=== PATIENT | male | born 1975 | race Caucasian/White ===

== ENCOUNTER 2019-06-27 07:32 | Emergency (ER) | payer OTHER, SELFPAY ==
[2019-06-27 07:43] VITALS: BP 113/98; PULSE 83; RESP 15; TEMP 36.5; O2SAT 98
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
== END 2019-06-27 08:06 | disposition home or self-care (01) ==
PROVIDERS: Emergency Provider Emergency Medicine
DX: M54.12 Radiculopathy, cervical region (principal); F17.200 Nicotine dependence, unspecified, uncomplicated
CPT/HCPCS: 99283

== ENCOUNTER 2019-11-02 21:22 | Emergency (ER) | payer OTHER, SELFPAY ==
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
[2019-11-02 21:26] VITALS: BP 146/88; PULSE 99; RESP 16; TEMP 36.7; O2SAT 100
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
--- NOTE | 2019-11-02 22:09 | PC.NURSE ---
short arm ocl splint applied as ordered to right arm and hand, sugar tong applied.
[2019-11-02 22:11] VITALS: BP 134/78; PULSE 76; RESP 16; TEMP 36.7; O2SAT 100
== END 2019-11-02 22:21 | disposition home or self-care (01) ==
LOC: ANHED 22:17
PROVIDERS: Emergency Provider Emergency Medicine
DX: S92.351A Displaced fracture of fifth metatarsal bone, right foot, initial encounter for closed fracture (principal); Y04.0XXA Assault by unarmed brawl or fight, initial encounter
CPT/HCPCS: 29125; 73130; 99284

== ENCOUNTER 2020-03-25 12:40 | Emergency (ER) | payer OTHER, SELFPAY ==
--- NOTE | ~2020-03-25 | XR_ITS ---
EXAMINATION: XR shoulder LT min 2V DATE: 03/25/2020 13:30 INDICATION: Left shoulder pain. TECHNIQUE: 4 views of left shoulder were obtained. COMPARISON: None. FINDINGS: Bone alignment is normal. No fracture. Glenohumeral joint is normal. There is mild acromioc lavicular joint osteoarthritis. IMPRESSION: 1. Mild left acromioclavicular joint osteoarthritis. Reviewed, dictated and finalized at location A. HEONETTE MANAGER
[2020-03-25 13:03] VITALS: BP 134/75; PULSE 83; RESP 16; TEMP 36.3; O2SAT 98
--- NOTE | 2020-03-25 13:23 | PC.NURSE ---
PT TO XRAY VIA W/C.
[2020-03-25] MEDS: KETOROLAC 30 MG/ML VIAL (*BKC) IM (13:39)
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
[2020-03-25 14:39] VITALS: BP 127/33; PULSE 98; RESP 14; O2SAT 97
== END 2020-03-25 14:41 | disposition home or self-care (01) ==
LOC: ANHED 14:07
PROVIDERS: Emergency Provider Emergency Medicine; PCP Physician Assistant
DX: S43.402A Unspecified sprain of left shoulder joint, initial encounter (principal); F17.210 Nicotine dependence, cigarettes, uncomplicated; X58.XXXA Exposure to other specified factors, initial encounter
CPT/HCPCS: 73030; 96372; 99283; J1885

== ENCOUNTER 2022-02-14 11:00 | Emergency (ER) | payer OTHER, SELFPAY ==
--- NOTE | ~2022-02-14 | XR_ITS ---
EXAMINATION: XR chest 2V DATE: 02/14/2022 11:53 INDICATION: Cough and shortness of breath. TECHNIQUE: Frontal and lateral views of the chest were obtained. COMPARISON: Chest 2 views 01/30/2019 FINDINGS: There is no pneumonia, pleural effusion, or pneumothorax. The heart size is normal. IMPRESSION: 1. No acute cardiopulmonary disease. Reviewed, dictated and finalized at location A. E OPERATOR
[2022-02-14 11:17] VITALS: BP 122/83; PULSE 90; RESP 18; TEMP 36.6; O2SAT 98
[2022-02-14 12:20] LABS: Influenza A QL RT-PCR Negative (Negative); Influenza B QL RT-PCR Negative (Negative); SARS-CoV-2 RNA PCR Negative
== END 2022-02-14 14:27 | disposition left against medical advice (07) ==
PROVIDERS: Physician Assistant; Emergency Provider Emergency Medicine; PCP Internal Medicine Gastroenterology
DX: R05.9 Cough, unspecified (principal); R06.02 Shortness of breath; Z53.21 Procedure and treatment not carried out due to patient leaving prior to being seen by health care provider; Z20.822 Contact with and (suspected) exposure to COVID-19
CPT/HCPCS: 71046; 87636; 99199

== ENCOUNTER 2023-07-11 07:24 | Emergency (ER) | payer OTHER, SELFPAY ==
--- NOTE | ~2023-07-11 | XR_ITS ---
Right Hand Technique: PA, oblique, and lateral views were obtained. Clinical History: Pain Findings: There is an acute transverse minimally depressed fracture of the midshaft of the fourth met acarpal. There is mild volar angulation of the distal fracture fragment. No other fracture or disloca tion seen. Joint spaces are preserved. Soft tissues are unremarkable. Impression: Acute fracture of the midshaft of the fourth metacarpal, as detailed above. Reviewed, dictated and finalized at location M. Impression: Acute fracture of the midshaft of the fourth metacarpal, as detailed above.
--- NOTE | ~2023-07-11 | XR_ITS ---
EXAMINATION: XR elbow RT min 3V DATE: 07/11/2023 08:24 INDICATION: Right elbow pain. TECHNIQUE: 4 views of right elbow were obtained. COMPARISON: None. FINDINGS: Bone alignment is normal. No fracture. There is a 14 mm nonaggressive lytic lesion with scl erotic margin in distal humerus, likely benign. Joint spaces are normal. No elbow joint effusion. IMPRESSION: 1. No fracture. Reviewed, dictated and finalized at location A. IMPRESSION: 1. No fracture.
[2023-07-11 07:27] VITALS: BP 152/107; PULSE 78; TEMP 36.6; O2SAT 100
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
== END 2023-07-11 09:22 | disposition home or self-care (01) ==
PROVIDERS: Emergency Provider Emergency Medicine; PCP Internal Medicine Gastroenterology
DX: S62.324A Displaced fracture of shaft of fourth metacarpal bone, right hand, initial encounter for closed fracture (principal); F17.200 Nicotine dependence, unspecified, uncomplicated; Y04.2XXA Assault by strike against or bumped into by another person, initial encounter
CPT/HCPCS: 29125; 73080; 73130; 99284

== ENCOUNTER 2023-07-13 16:07 | Outpatient (CLI) | payer OTHER, SELFPAY ==
--- NOTE | ~2023-07-13 | XR_ITS ---
EXAM: XR hand RT min 3V DATE: 07/13/2023 16:17 HISTORY: S62.309A - Unspecified fracture of unspecified metacarpal... . COMPARISON: 07/11/2023. FINDINGS: Normal mineralization. Radiology detail obscured by cast material. Redemonstration of the o blique fourth metacarpal midshaft fracture with slightly improved but persistent anterior angulation of 29 degrees (previously 41 degrees). No definite healing change. IMPRESSION: Slightly improved but persistent angulation of the right fourth metacarpal midshaft fract ure. Reviewed, dictated and finalized at location K. IMPRESSION: Slightly improved but persistent angulation of the right fourth met acarpal midshaft fracture.
== END 2023-07-13 16:08 | disposition home or self-care (01) ==
LOC: ANHIMG 16:08
PROVIDERS: PCP Internal Medicine Gastroenterology; Visit Provider Physician Assistant Surgical
DX: S62.324A Displaced fracture of shaft of fourth metacarpal bone, right hand, initial encounter for closed fracture (principal)
CPT/HCPCS: 73130